=== PATIENT | female | born 1990 | race Caucasian/White ===

== ENCOUNTER 2018-11-11 02:22 | Observation (INO) | payer OTHER ==
[~2018-11-11] VITALS: Ht 157.5 cm; Wt 66.0 kg
[2018-11-11 03:35] VITALS: BP 128/77
[2018-11-11] MEDS ORDERED: ACETAMINOPHEN TAB 650MG DOSE (2X325MG) PO PRN (04:30)
--- NOTE | 2018-11-11 04:43 | HPEPDOC ---
[facility] Medical History & Physical Date of Admission Nov 11, 2018 Attending Physician: IDA ZAPIEN MD History and Physical CHIEF COMPLAINT: Arthralgia HISTORY OF PRESENT ILLNESS: Patient is a 27-year-old female with past medical history of anxiety and depression is transferred here with complaints of intrac table diffuse arthralgia. Patient reportedly has been having ongoing symptoms for 3-6 months that first started with ankle pain that was relieved with ibuprofen then subsequently spread to her knees, elbows, hands and all of her joints. Symptoms started to worsen for the past several days and she was seen in urgent care with all normal labs and given ibuprofen which she reported help her symptoms. However, when medication stopped working she went to the ER several times and was tested for Lyme disease, lupus, rheumatoid arthritis, malaria with extensive rheumatological workup (including uric acid, ESR, CRP, RF) that was repeatedly negative. She reported some chills but otherwise denies any fevers or any other symptoms. She does state that she has been under more stress lately with having an and total of 3 young children. No history of STDs but recently found out has been talking to other women. Also concern for fibromyalgia as patient reported that mother has this disease. PAST MEDICAL HISTORY: 1. Polyarthralgia. 2. Anxiety. 3. Depression. SOCIAL HISTORY: Denies alcohol, tobacco or illicit drug use. FAMILY HISTORY: Mother with diabetes, hypertension and fibromyalgia Father with skin cancer ALLERGIES: Please see below. REVIEW OF SYSTEMS: 10 point review of system negative except as stated above HOME MEDICATIONS: Please see below. PHYSICAL EXAMINATION: General: mild to moderate distress Eyes: Normal sclera, EOMI, NIKOLAS HENT: Atraumatic, neck supple, moist mucous membranes Cardiovascular: normal rhythm. No murmurs appreciated. Pulmonary: Clear to auscultation b/l, no wheezing GI: Soft, nontender, nondistended Skin: Warm and dry MSK: diffuse joint tenderness. Neuro: CN grossly intact. No focal deficits. Strengths equal b/l. Psych: oriented x 3 LABORATORY DATA: See below. MICROBIOLOGY: Please see below. ASSESSMENT AND PLAN: 1. Polyarthralgia - Migratory arthralgia concern for Viral vs. RA vs. other autoimmune disease vs. Psychological. - Has had multiple rheumatological workup as well as Lyme testing, malaria. - Will order hepatitis panel, parvovirus, STD testing. - Has been on steroids outpatient with minimal relief. - Will try Naproxen. Consider Rheumatological vs. neurology consultation if labs negative and symptoms persistent. 2. Anxiety and Depression - resume home medications. - May be contributing to symptoms Patient is high risk due to intractable pain and may require IV analgesics Estimated length of stay less than 2 days with expected disposition to home. Vital Signs Vital Signs Date Time Temp Pulse Resp B/P (MAP) Pulse Ox O2 Delivery O2 Flow Rate FiO2 11/11/18 03:35 98.0 77 16 128/77 (94) 97 IDA ZAPIEN MD Nov 11, 2018 04:43
[2018-11-11] MEDS ORDERED: METH4PACK PO (04:51)
[2018-11-11] MEDS ORDERED: BUSP5TA PO (04:53)
[2018-11-11] MEDS ORDERED: IBUPOTC PO (04:54)
[2018-11-11] MEDS ORDERED: PREN27TA3 PO (04:55)
[2018-11-11 06:06] LABS: HEMATOCRIT 37.9 % (36.0-47.0); MEAN CORPUSCULAR HEMOGLOBIN 30.7 pg (27.0-33.0); MEAN CORPUSCULAR HGB CONC 34.3 g/dl (32.0-36.5); MEAN CORPUSCULAR VOLUME 89.4 fl (80.0-96.0); PLATELET COUNT, AUTOMATED 246 10^3/uL (150-450); RED BLOOD COUNT 4.24 10^6/uL (4.00-5.40); WHITE BLOOD COUNT 7.7 10^3/uL (4.0-10.0)
[2018-11-11 06:35] LABS: ALBUMIN 3.6 GM/DL (3.2-5.2); ALT/SGPT 17 U/L (12-78); BILIRUBIN,DIRECT 0.1 MG/DL (0.0-0.2); BILIRUBIN,TOTAL 0.4 MG/DL (0.2-1.0); BLOOD UREA NITROGEN 9 MG/DL (7-18); CALCIUM LEVEL 8.3 MG/DL (8.5-10.1); CARBON DIOXIDE LEVEL 22 MEQ/L (21-32); CHLORIDE LEVEL 109 MEQ/L (98-107); CREATININE FOR GFR 0.74 MG/DL (0.55-1.30); GLOMERULAR FILTRATION RATE > 60.0 (>60); GLUCOSE, FASTING 129 MG/DL (70-100); POTASSIUM SERUM 4.1 MEQ/L (3.5-5.1); SODIUM LEVEL 140 MEQ/L (136-145); TOTAL PROTEIN 6.6 GM/DL (6.4-8.2)
[2018-11-11] MEDS ORDERED: busPIRone 5 MG TAB PO SCH (09:00)
[2018-11-11 09:22] LABS: ERYTHROCYTE SEDIMENTATION RATE 4 mm/hr (0-20)
[2018-11-11 09:50] LABS: C REACTIVE PROTEIN QUANTITATIV < 0.30 MG/DL (0.00-0.30)
[2018-11-11] MEDS: PRENATAL VITAMINS CHEWABLE TABLET PO SCH (09:51)
[2018-11-11 10:04] LABS: VITAMIN B12 LEVEL 1056 PG/ML (247-911)
[2018-11-11 10:37] LABS: HEPATITIS B SURFACE ANTIGEN NEGATIVE (NEGATIVE)
[2018-11-11 10:43] LABS: HIV 1&2 SCREEN CENTAUR NEGATIVE (NEGATIVE)
[2018-11-11 11:06] LABS: HEPATITIS A ANTIBODY IGM NEGATIVE (NEGATIVE)
[2018-11-11] MEDS: NAPROXEN 250 MG TAB PO PRN ×2 (12:25→20:17)
[2018-11-11 14:00] VITALS: BP 107/60
--- NOTE | 2018-11-11 17:03 | IPNPDOC ---
Date Seen The patient was seen on 11/11/18. Progress Note SUBJECTIVE: Ms. Alexis Desouza is a 27 yo female with PMH of anxiety and depression who presents with muscle weakness and arthralgias. She was seen this morning while resting in bed. She states that her main complaint this morning is muscle weakness, her current pain level is 2/10 intensity. She says this all began a few months ago with ankle stiffness, ankle weakness, and dull pain only in her ankle that she described as "growing pains." About 6 days ago she said that the weakness became generalized and she has associated sharp pain in her joints. She states that the pain comes after she has much difficulty trying to move her muscles. She feels most weak in the mornings. Within the past week she also reports intermittent muscle twitching and a "crawling sensation" in her muscles. The weakness is greatest in RLE>LLE>UE. She reports that within the past few months she has had some intermittent chills and subjective fevers but has never checked for a fever, pruritic dry scaling rash on her anterior neck that has resolved, dry mouth, and hair thinning, memory fog. She denies any unintentional weight loss, conjunctivitis, dry eye, and history of URI or gastrointestinal illness. She does feel that she is feeling better today. No overnight events reported by nursing. OBJECTIVE PHYSICAL EXAMINATION: VITAL SIGNS: Please see below. GENERAL: Alert, cooperative, tearful, A&OX3 HEENT: EOMI, PERRLA, supple, no rashes CARDIOVASCULAR: Regular rate, normal S1 and S2. No murmurs, rubs, or gallops RESPIRATORY: Lungs CTA bilaterally. No rales, rhonchi, or wheezes ABDOMINAL: soft, non tender to palpation, +BS EXTREMITIES: no rashes, no peripheral edema NEUROLOGICAL: UE and LE muscle strength testing was 4/5 throughout. Patient was using maximal effort to move extremities. PSYCHOLOGICAL: tearful and anxious LABORATORY DATA, IMAGING STUDIES, MICROBIOLOGY: Please see below. DVT prophylaxis ordered?: TEDs and sequentials ASSESSMENT AND PLAN: Ms. Alxeis Desouza is a 27 yo female with PMH of anxiety and depression who presents with muscle weakness and arthralgias. The following pro blems will be managed during her hospitalization: PROBLEMS: Muscle weakness and polyarthralgia -Possible secondary to Myasthenia gravis vs infectious vs fibromyalgia vs chronic fatigue syndrome vs psychological -Patient complains of multiple months of ankle weakness and new onset generalized weakness and joint pain within the last 6 days. She denies fevers, unintentional weight loss, rashes, URI, GI distress -ESR and CRP are normal. Nonreactive syphilis, negative hepatitis panel and HIV. Serologies are pending for fredo. She states that she has had a negative rheumatoid work up recently including RF and uric acid, as well as a negative lyme. Infectious and rheumatologic causes are unlikely due to negative lab work. Procalcitonin level ordered. -Unsure if myasthenia gravis. ACh receptor antibodies ordered -c/w Naproxen for pain control. Anxiety and depression -Patient reports increased stressors and anxiety in her life. May be contr ibuting to problem #1 and #2 -c/w home buspar DVT prophylaxis -TEDs and sequentials DISPOSITION: stable possible discharge in 24-48 hours for outpatient follow up/work up if clinical improving. VS, I&O, 24H, Fishbone Vital Signs/I&O Vital Signs Date Time Temp Pulse Resp B/P (MAP) Pulse Ox O2 Delivery O2 Flow Rate FiO2 11/11/18 03:35 98.0 77 16 128/77 (94) 97 I&O- Last 24 Hours up to 6 AM 11/11/18 06:00 Output Total 400 ml Balance -400 ml Laboratory Data 24H LABS Laboratory Tests 2 11/11/18 05:31: 11/11/18 05:41: Nucleated Red Blood Cells % (auto) 0.0, Erythrocyte Sedimentation Rate 4, Anion Gap 9, Glomerular Filtration Rate > 60.0, Blood Urea Nitrogen 9, Creatinine 0.74, Sodium Level 140, Potassium Level 4.1, Chloride Level 109H, Carbon Dioxide Level 22, Calcium Level 8.3L, Aspartate Amino Transf (AST/SGOT) 12, Alanine Aminotransferase (ALT/SGPT) 17, Alkaline Phosphatase 83, Total Bilirubin 0.4, Direct Bilirubin 0.1, Total Protein 6.6, Albumin 3.6, C-Reactive Protein, Quantitative < 0.30, Albumin/Globulin Ratio 1.20, Vitamin B12 Level 1056H CBC/BMP Laboratory Tests 11/11/18 05:41 Red Blood Count 4.24, Mean Corpuscular Volume 89.4, Mean Corpuscular Hemoglobin 30.7, Mean Corpuscular Hemoglobin Concent 34.3, Red Cell Distribution Width 11.6, Calcium Level 8.3 L, Aspartate Amino Transf (AST/SGOT) 12, Alanine Aminotransferase (ALT/SGPT) 17, Alkaline Phosphatase 83, Total Bilirubin 0.4, Direct Bilirubin 0.1, Total Protein 6.6, Albumin 3.6 GME ATTESTATION GME ATTESTATION My faculty preceptor for this patient encounter was physically present during the encounter and was fully available. All aspects of the patient interview, examination, medical decision making process, and medical care plan development were reviewed and approved by the faculty preceptor. The faculty preceptor is aware and concurs with the plan as stated in the body of this note and will attest to such by his/her cosignature. CHIDI SIFUENTES S-III Nov 11, 2018 11:51
[2018-11-11 20:00] VITALS: BP 124/78
[2018-11-12 06:00] VITALS: BP 108/57
[2018-11-12] MEDS: PRENATAL VITAMINS CHEWABLE TABLET PO SCH (08:59)
[2018-11-12 09:22] LABS: IONIZED CALCIUM 4.6 MG/DL (4.5-5.3)
[2018-11-12 09:28] LABS: BASO # 0.1 10^3/uL (0.0-0.2); BASO % 0.6 % (0.0-1.0); EOS # 0.1 10^3/uL (0.0-0.50); EOS % 0.7 % (0.0-3.0); HEMATOCRIT 41.5 % (36.0-47.0); HEMOGLOBIN 13.9 g/dl (12.0-15.5); LYMPH # 3.2 10^3/uL (1.5-6.5); LYMPH % 38.3 % (24.0-44.0); MEAN CORPUSCULAR HEMOGLOBIN 30.5 pg (27.0-33.0); MEAN CORPUSCULAR HGB CONC 33.5 g/dl (32.0-36.5); MEAN CORPUSCULAR VOLUME 91.2 fl (80.0-96.0); MONO # 0.4 10^3/uL (0.0-0.8); MONO % 4.2 % (0.0-5.0); NEUTROPHILS # 4.7 10^3/uL (1.8-7.7); PLATELET COUNT, AUTOMATED 260 10^3/uL (150-450); RED BLOOD COUNT 4.55 10^6/uL (4.00-5.40); WHITE BLOOD COUNT 8.4 10^3/uL (4.0-10.0)
[2018-11-12 09:54] LABS: ERYTHROCYTE SEDIMENTATION RATE 5 mm/hr (0-20)
[2018-11-12 09:58] LABS: ALBUMIN 3.9 GM/DL (3.2-5.2); ALT/SGPT 17 U/L (12-78); BILIRUBIN,TOTAL 0.4 MG/DL (0.2-1.0); BLOOD UREA NITROGEN 20 MG/DL (7-18); C REACTIVE PROTEIN QUANTITATIV < 0.30 MG/DL (0.00-0.30); CALCIUM LEVEL 8.4 MG/DL (8.5-10.1); CARBON DIOXIDE LEVEL 27 MEQ/L (21-32); CHLORIDE LEVEL 109 MEQ/L (98-107); COMPLEMENT C3 106 MG/DL (90-180); COMPLEMENT C4 18 MG/DL (10-40); CPK CREATINE PHOSPHOKINASE 44 U/L (26-192); CREATININE FOR GFR 0.67 MG/DL (0.55-1.30); GLOMERULAR FILTRATION RATE > 60.0 (>60); GLUCOSE, FASTING 90 MG/DL (70-100); MAGNESIUM LEVEL 2.1 MG/DL (1.8-2.4); POTASSIUM SERUM 3.7 MEQ/L (3.5-5.1); SODIUM LEVEL 140 MEQ/L (136-145); TOTAL PROTEIN 6.8 GM/DL (6.4-8.2)
--- NOTE | 2018-11-12 10:48 | REP ---
Right ankle: Two views. History: Right ankle pain. Findings: Ankle mortise is intact. There is no evidence of arthropathy. No bony erosive changes seen. Soft tissues are unremarkable. Impression: Negative two-view right ankle radiographs. Electronically Signed by Jesús Loving MD 11/12/2018 10:39 A
--- NOTE | 2018-11-12 10:57 | REP ---
Right eight in the colon at two views. History: Right knee pain. Findings: AP and lateral views of the right knee demonstrate normal bones, joints and soft tissues. No fracture or subluxation is seen. There is no radiographic evidence of arthropathy. Impression: Negative right knee radiographs, AP and lateral views. Electronically Signed by Jesús Loving MD 11/12/2018 10:48 A
--- NOTE | 2018-11-12 10:58 | REP ---
Chest x-ray: Two views. History: Cough. Subjective history of fever . Comparison study: No comparison study . Findings: The lungs are well inflated and free of infiltrate. The pleural angles are sharp. The heart size is normal. Pulmonary vasculature is not increased. No significant bony abnormality is seen. Impression: Negative chest x-ray. Electronically Signed by Jesús Loving MD 11/12/2018 10:49 A
--- NOTE | 2018-11-12 11:03 | REP ---
Right hand series: Four views. History: Arthropathy of the small joints. Rule out rheumatoid arthritis. Findings: Four views of the right hand show overall normal mineralization. There is no evidence of diffuse or periarticular osteoporosis. Joint spaces are preserved. No erosive changes are seen. Periarticular soft tissues are unremarkable. Impression: Negative radiographs of the right hand. Electronically Signed by Jesús Loving MD 11/12/2018 10:54 A
--- NOTE | 2018-11-12 21:39 | DS.PDOC ---
Discharge Summary General Date of Admission Nov 11, 2018 at 03:39 Date of Discharge November 12, 2018 Discharge Summary DISCHARGE DIAGNOSES: Nonspecific Polyarthralgia r/o Fibromyalgia Anxiety Depression DISCHARGE MEDICATIONS: Pls see below DISCHARGE INSTRUCTIONS: PCP TO REFER TO FLIGHT RADIO OPERATOR IN 1-2 WKS FU W PCP WITHIN 5DAYS OF DISCHARGE. HISTORY OF PRESENTING ILLNESS: Patient is a 27-year-old female with past medical history of anxiety and depression is transferred here with complaints of intractable diffuse arthralgia. Patient reportedly has been having ongoing symptoms for 3-6 months that first started with ankle pain that was relieved with ibuprofen then subsequ ently spread to her knees, elbows, hands and all of her joints. Symptoms started to worsen for the past several days and she was seen in urgent care with all normal labs and given ibuprofen which she reported help her symptoms. However, when medication stopped working she went to the ER several times and was tested for Lyme disease, lupus, rheumatoid arthritis, malaria with extensive rheumatological workup (including uric acid, ESR, CRP, RF) that was repeatedly negative. She reported some chills but otherwise denies any fevers or any other symptoms. She does state that she has been under more stress lately with having an infant and total of 3 young children. No history of STDs but recently found out has been talking to other women. Also concern for fibromyalgia as patient reported that mother has this disease. HOSPITAL COURSE: Polyarthralgia - Pt c/o right ankle, knee, and hand pain with subsequent involvement of the bilateral shoulders, left knee and ankle and small joints of the hand for the past week, WITHOUT swelling or redness. She denies any mouth, genital, or anal ulcers. no history of psoriasis, IBD and denied any brbpr,abdominal pain. denies any rash or history of GC chlamydia. admits to h/o trichomonas infection. - DARA, ds DNA, Scl, complement levels, ck, hepatitis profile, parvovirus, CASH REGISTER OPERATOR, Anti-citrulline ab pending - negative CRP, ESR, procalcitonin making infection unlikely - Xray right ankle, knee, hand wnl along with no signs of dactylitis, joint swelling -due to c/o cough and subjective fevers, ordered cxr and respiratory panel which were negative -c/o face rash today with some flushing. Lupus w/u pending but esr,crp, and complement levels were wnl. -highly encouraged referral to incident response analyst and pain mgt for possible fibromyalgia. Anxiety and Depression - resume home medications. - May be contributing to symptoms disposition: negative workup. dc home with outpt referral to rheum. PHYSICAL EXAMINATION: VITALS: PLS SEE BELOW General: AAOx 3,no pallor,no icterus, no respiratory distress Eyes: Normal sclera, EOMI, NIKOLAS HENT: Atraumatic, neck supple, moist mucous membranes, Cardiovascular: normal rhythm. No murmurs appreciated. Pulmonary: Clear to auscultation b/l, no wheezing GI: Soft, nontender, nondistended Skin: Warm and dry MSK: diffuse joint tenderness. but no dactylitis, joint swelling. no bogginess of mcp, pip, dip joints, knee, ankle , elbow, shoulder, or wrist joints. normal ROM b/l upper extremities/LE flexion , extension, pronation,supination. 5/5/ strength b/l in UE,LE. Neuro: CN grossly intact. No focal deficits. Strengths equal b/l. Psych: oriented x 3 LABORATORY DATA, IMAGING STUDIES: See below. MICROBIOLOGY: Please see below. TIME SPENT ON DISCHARGE: 30 MIN Vital Signs/I&Os Vital Signs Date Time Temp Pulse Resp B/P (MAP) Pulse Ox O2 Delivery O2 Flow Rate FiO2 11/12/18 06:00 98.4 74 16 108/57 (74) 98 I&O- Last 24 Hours up to 6 AM 11/12/18 06:00 Intake Total 720 ml Output Total 1250 ml Balance -530 ml Microbiology Microbiology 11/12/18 Respiratory Virus Panel (PCR) (MAGALY), Received Pending Discharge Medications Scheduled Buspirone HCl (Buspirone HCl) 5 Mg Tab, 5 MG PO BID, (Reported) Methylprednisolone (Methylprednisolone Dose P) 21 Ea Dspk, 4 MG PO ASDIRECTED, (Reported) LAST DOSE WAS THE AFTER LUNCH DOSE ON DAY 1 Multivitamins/ ( 27-1 mg) 1 Tab Tab, 1 TAB PO DAILY, (Reported) STOPPED TAKING WHILE ON STEROID Scheduled PRN Ibuprofen (Ibuprofen) 200 Mg Tab, 800 MG PO Q6H PRN for PAIN, (Reported) Allergies Coded Allergies: No Known Allergies (Unverified Allergy, Unknown, 11/11/18) KAY BRUNO MD Nov 12, 2018 09:22
[2018-11-13 14:19] LABS: ANTI DOUBLE STRAND-DNA AB <1 IU/mL (0-9); RNP ANTIBODY < 0.2 AI (0.0-0.9); SMITHS ANTIBODY < 0.2 AI (0.0-0.9)
[2018-11-14 00:08] LABS: ANTINUCLEAR ANTIBODIES DIRECT Negative (Negative)
[2018-11-17 00:06] LABS: PARVOVIRUS B19 QUANT PCR Negative copies/mL (Negative)
[2018-11-17 15:30] LABS: ANTI SCLERODERMA ANTIBODIES <0.2 AI (0.0-0.9); Chitobioside Carbohydrat (ACCA 0 units (0-90); Laminaribioside Carbohyd (ALCA 4 units (0-60); Mannobioside Carbohydrat (AMCA 20 units (0-100); Saccharomyces cerevisiae IgG A 7 units (0-50)
== END 2018-11-12 12:05 | disposition home or self-care (01) ==
LOC: M MS4PR 03:39
PROVIDERS: ADMIT Student in an Organized Health Care Education/Training Program; ATTEND Student in an Organized Health Care Education/Training Program
DX: M06.4 Inflammatory polyarthropathy (principal); M79.7 Fibromyalgia; F41.9 Anxiety disorder, unspecified; F32.9 Major depressive disorder, single episode, unspecified; Z79.899 Other long term (current) drug therapy

== ENCOUNTER 2019-01-21 17:42 | Emergency (ER) | payer OTHER ==
[~2019-01-21] VITALS: Ht 157.5 cm; Wt 66.4 kg
[~2019-01-21 17:42] MED LIST: BUSP5TA PO; IBUPOTC PO; METH4PACK PO; PREN27TA3 PO
[2019-01-21] MEDS ORDERED: CYMB1CAP4 PO (17:52)
[2019-01-21] MEDS ORDERED: VITA-122 PO (17:52)
[2019-01-21] MEDS ORDERED: NS 1,000 ML IV ONE (19:00)
[2019-01-21] MEDS ORDERED: ASPIRIN 81 MG CHEW TABLET PO ONE (19:00)
[2019-01-21 19:40] LABS: BASO % 0.6 % (0.0-1.0); EOS # 0.2 10^3/uL (0.0-0.50); EOS % 2.7 % (0.0-3.0); HEMATOCRIT 39.9 % (36.0-47.0); HEMOGLOBIN 13.7 g/dl (12.0-15.5); LYMPH % 29.2 % (24.0-44.0); MEAN CORPUSCULAR HEMOGLOBIN 31.1 pg (27.0-33.0); MEAN CORPUSCULAR HGB CONC 34.3 g/dl (32.0-36.5); MEAN CORPUSCULAR VOLUME 90.5 fl (80.0-96.0); MONO # 0.3 10^3/uL (0.0-0.8); MONO % 4.9 % (0.0-5.0); NEUTROPHILS # 4.3 10^3/uL (1.8-7.7); NEUTROPHILS % 62.5 % (36.0-66.0); PLATELET COUNT, AUTOMATED 235 10^3/uL (150-450); RED BLOOD COUNT 4.41 10^6/uL (4.00-5.40); WHITE BLOOD COUNT 6.8 10^3/uL (4.0-10.0)
[2019-01-21 19:51] LABS: INR 0.94; PROTHROMBIN TIME 12.7 SECONDS (12.1-14.4)
[2019-01-21 20:01] LABS: HCG, SERUM QUALITATIVE NEGATIVE (NEGATIVE)
[2019-01-21 20:09] LABS: AMPHETAMINES LEVEL URINE NEGATIVE (NEGATIVE); BARBITURATES URINE NEGATIVE (NEGATIVE); BENZODIAZEPINES URINE NEGATIVE (NEGATIVE); CANNABINOIDS URINE NEGATIVE (NEGATIVE); COCAINE METABOLITE URINE NEGATIVE (NEGATIVE); METHADONE URINE NEGATIVE (NEGATIVE); OPIATES URINE NEGATIVE (NEGATIVE); PHENCYCLIDINE URINE NEGATIVE (NEGATIVE)
[2019-01-21 20:11] LABS: ALBUMIN 3.5 GM/DL (3.2-5.2); ALT/SGPT 22 U/L (12-78); BILIRUBIN,DIRECT < 0.1 MG/DL (0.0-0.2); BILIRUBIN,TOTAL 0.2 MG/DL (0.2-1.0); BLOOD UREA NITROGEN 15 MG/DL (7-18); CALCIUM LEVEL 8.2 MG/DL (8.5-10.1); CARBON DIOXIDE LEVEL 27 MEQ/L (21-32); CHLORIDE LEVEL 108 MEQ/L (98-107); CK-MB VALUE MASS < 1.0 NG/ML (<3.6); CPK CREATINE PHOSPHOKINASE 94 U/L (26-192); GLOMERULAR FILTRATION RATE > 60.0 (>60); GLUCOSE, FASTING 97 MG/DL (70-100); MB/CK RELATIVE INDEX 1.06 (< OR =4); POTASSIUM SERUM 4.2 MEQ/L (3.5-5.1); SODIUM LEVEL 141 MEQ/L (136-145); TOTAL PROTEIN 7.1 GM/DL (6.4-8.2); TROPONIN I < 0.02 NG/ML (< 0.10)
[2019-01-21 20:45] VITALS: BP 138/72
[2019-01-21 22:14] LABS: T UPTAKE 34 % (30-39); THYROID STIMULATING HORMONE 0.839 uIU/ML (0.358-3.740); THYROXINE (T4) 8.7 UG/DL (4.5-12.0)
--- NOTE | 2019-01-22 08:21 | REP ---
CHEST: Single view. There is no evidence of acute infiltrate. No pleural effusion is seen. The heart is normal in size. The mediastinal silhouette is unremarkable. The visualized osseous structures are intact. IMPRESSION: No acute pulmonary disease. Electronically Signed by Gabe Martinez MD 01/22/2019 07:20 P
--- NOTE | 2019-01-22 13:19 | ECGEPIP ---
[facility] - ED Test Date: 2019-01-21 Pat Name: LIANA KAUR Department: Room: - Gender: Female Field Control Inspector: ct : 1990 Requested By: ALFONZO MCNULTY Order Number: [id number] Reading MD: Gera Neff Measurements Intervals [place] Rate: 90 P: 54 VA: 143 QRS: 38 QRSD: 81 T: 56 QT: 344 QTc: 421 Interpretive Statements SINUS RHYTHM NONSPECIFIC T-WAVE ABNORMALITY NO PRIORS FOR COMPARISON Electronically Signed on 01-22-2019 13:19:01 EDT by Gera Neff
== END 2019-01-21 20:59 | disposition home or self-care (01) ==
LOC: M ED 17:42 → EDBD 17:42 → M ED 20:59
DX: R00.2 Palpitations (principal); Z79.899 Other long term (current) drug therapy; F17.210 Nicotine dependence, cigarettes, uncomplicated

== ENCOUNTER 2019-02-06 21:19 | Emergency (ER) | payer OTHER ==
[~2019-02-06] VITALS: Ht 177.8 cm; Wt 65.9 kg
[2019-02-06 21:19] VITALS: BP 128/82
[~2019-02-06 21:19] MED LIST changes: +CYMB1CAP4 PO; +VITA-122 PO
[2019-02-06] MEDS ORDERED: AUGM875T28 PO (21:29)
[2019-02-06] MEDS ORDERED: NS 1,000 ML IV ONE (23:15)
[2019-02-06 23:18] LABS: BASO # 0.1 10^3/uL (0.0-0.2); BASO % 0.6 % (0.0-1.0); EOS # 0.2 10^3/uL (0.0-0.50); EOS % 2.5 % (0.0-3.0); HEMATOCRIT 38.3 % (36.0-47.0); HEMOGLOBIN 13.2 g/dl (12.0-15.5); LYMPH # 2.9 10^3/uL (1.5-6.5); LYMPH % 36.4 % (24.0-44.0); MEAN CORPUSCULAR HEMOGLOBIN 30.8 pg (27.0-33.0); MEAN CORPUSCULAR HGB CONC 34.5 g/dl (32.0-36.5); MEAN CORPUSCULAR VOLUME 89.3 fl (80.0-96.0); MONO # 0.4 10^3/uL (0.0-0.8); MONO % 5.2 % (0.0-5.0); NEUTROPHILS # 4.5 10^3/uL (1.8-7.7); NEUTROPHILS % 55.2 % (36.0-66.0); PLATELET COUNT, AUTOMATED 235 10^3/uL (150-450); RED BLOOD COUNT 4.29 10^6/uL (4.00-5.40); WHITE BLOOD COUNT 8.1 10^3/uL (4.0-10.0)
[2019-02-06 23:38] LABS: BLOOD UREA NITROGEN 14 MG/DL (7-18); CALCIUM LEVEL 8.2 MG/DL (8.5-10.1); CARBON DIOXIDE LEVEL 27 MEQ/L (21-32); CHLORIDE LEVEL 107 MEQ/L (98-107); CPK CREATINE PHOSPHOKINASE 71 U/L (26-192); CREATININE FOR GFR 0.68 MG/DL (0.55-1.30); GLOMERULAR FILTRATION RATE > 60.0 (>60); GLUCOSE, FASTING 86 MG/DL (70-100); POTASSIUM SERUM 3.6 MEQ/L (3.5-5.1); SODIUM LEVEL 142 MEQ/L (136-145)
--- NOTE | 2019-02-06 23:42 | REPVR ---
EXAM: CT Head Without Contrast EXAM DATE/TIME: 02/06/2019 11:13 PM CLINICAL HISTORY: 28 years old, female; Pain; Headache not specified; Additional info: Muscle weakness/aches, DESIR TECHNIQUE: Imaging protocol: Axial computed tomography images of the head without contrast. Radiation optimization: All CT scans at this facility use at least one of these dose optimization techniques: automated exposure control; mA and/or kV adjustment per patient size (includes targeted exams where dose is matched to clinical indication); or iterative reconstruction. COMPARISON: No relevant prior studies available. FINDINGS: Brain: No CT evidence of acute intracranial hemorrhage or acute territorial infarction. No significant mass effect or midline shift. Basal cisterns patent. Ventricles: Normal in size and configuration. Bones/joints: No acute osseous abnormality. Sinuses: Grossly unremarkable. Mastoid air cells: Grossly unremarkable. Soft tissues: Grossly unremarkable. IMPRESSION: No CT evidence of acute intracranial pathology. Electronically signed by: Js Amrstrong On 02/06/2019 23:42:17 PM
[2019-02-06 23:44] LABS: APPEARANCE, URINE CLEAR (CLEAR); BACTERIA, URINE AUTO NEGATIVE (NEGATIVE); BILIRUBIN, URINE AUTO NEGATIVE (NEGATIVE); BLOOD, URINE BLOOD NEGATIVE (NEGATIVE); COLOR, URINE YELLOW (YELLOW); GLUCOSE, URINE (UA) AUTO NEGATIVE (NEGATIVE); KETONE, URINE AUTO NEGATIVE (NEGATIVE); LEUKOCYTE ESTERASE, URINE AUTO TRACE (NEGATIVE); MUCUS, URINE SMALL (NEGATIVE); NITRITE, URINE AUTO NEGATIVE (NEGATIVE); PROTEIN, URINE AUTO NEGATIVE (NEGATIVE); RBC, URINE AUTO 2 /HPF (0-3); SPECIFIC GRAVITY URINE AUTO 1.014 (1.002-1.035); SQUAMOUS EPITHELIAL CELL UR AU 2 /HPF (0-6); WBC, URINE AUTO 2 /HPF (0-3)
--- NOTE | 2019-02-07 07:08 | ECGEPIP ---
[facility] - ED Test Date: 2019-02-06 Pat Name: LIANA KAUR Department: Room: - Gender: Female Committee Member: RACHEL : 1990 Requested By: KOBE Reese PA-C Order Number: [id number] Reading MD: Carla Mcknight Measurements Intervals [place] Rate: 78 P: 45 UT: 136 QRS: 49 QRSD: 86 T: 40 QT: 366 QTc: 419 Interpretive Statements SINUS RHYTHM NONSPECIFIC T-WAVE ABNORMALITY COMPARED 01/21/19 Electronically Signed on 02-07-2019 7:07:42 EDT by Carla Mcknight
[2019-02-10 00:09] LABS: Lyme Disease IgG/IgM Antibodie <0.91 ISR (0.00-0.90); Lyme Disease IgM Ab Quantitati <0.80 index (0.00-0.79)
== END 2019-02-07 00:58 | disposition home or self-care (01) ==
LOC: M ED 21:19
DX: M79.10 Myalgia, unspecified site (principal); Z87.891 Personal history of nicotine dependence; Z79.899 Other long term (current) drug therapy; Z79.2 Long term (current) use of antibiotics

== ENCOUNTER 2019-02-09 11:59 | Emergency (ER) | payer OTHER ==
[~2019-02-09] VITALS: Ht 157.5 cm; Wt 65.6 kg
[~2019-02-09 11:59] MED LIST changes: +AUGM875T28 PO
[2019-02-09 14:09] VITALS: BP 116/68
== END 2019-02-09 14:22 | disposition home or self-care (01) ==
LOC: M ED 11:59
DX: M79.10 Myalgia, unspecified site (principal); Z79.899 Other long term (current) drug therapy

== ENCOUNTER → 2019-02-28 | Outpatient (REF) | payer OTHER | LOC: M SFHCLERA 18:02 | PROVIDERS: ATTEND Nurse Practitioner Family | DX: R68.89 Other general symptoms and signs (principal) ==

== ENCOUNTER → 2019-03-18 | Outpatient (REF) | payer OTHER ==
[~2019-03-18] MED LIST changes: +CIPR-249 PO; +FLAG500T PO; +METO1TAB87 PO; +ONDA4TAB5 PO
[2019-03-18 17:08] LABS: ALBUMIN 3.9 GM/DL (3.2-5.2); ALT/SGPT 20 U/L (12-78); BILIRUBIN,TOTAL 0.4 MG/DL (0.2-1.0); BLOOD UREA NITROGEN 9 MG/DL (7-18); CARBON DIOXIDE LEVEL 26 MEQ/L (21-32); CHLORIDE LEVEL 107 MEQ/L (98-107); CREATININE FOR GFR 0.72 MG/DL (0.55-1.30); GLOMERULAR FILTRATION RATE > 60.0 (>60); GLUCOSE, FASTING 81 MG/DL (70-100); POTASSIUM SERUM 3.9 MEQ/L (3.5-5.1); SODIUM LEVEL 140 MEQ/L (136-145); TOTAL PROTEIN 7.5 GM/DL (6.4-8.2)
[2019-03-18 17:10] LABS: HEMATOCRIT 41.2 % (36.0-47.0); HEMOGLOBIN 14.2 g/dl (12.0-15.5); MEAN CORPUSCULAR HEMOGLOBIN 30.5 pg (27.0-33.0); MEAN CORPUSCULAR HGB CONC 34.5 g/dl (32.0-36.5); MEAN CORPUSCULAR VOLUME 88.4 fl (80.0-96.0); PLATELET COUNT, AUTOMATED 305 10^3/uL (150-450); RED BLOOD COUNT 4.66 10^6/uL (4.00-5.40); WHITE BLOOD COUNT 5.5 10^3/uL (4.0-10.0)
[2019-03-18 17:37] LABS: VITAMIN B12 LEVEL > 2000 PG/ML (247-911)
== END ==
LOC: M SFHCLERA 10:24
PROVIDERS: ATTEND Nurse Practitioner Family
DX: R42 Dizziness and giddiness (principal)
CPT/HCPCS: 80053; 81002; 81025; 82607; 82652; 82948; 84443; 85027; G0463

== ENCOUNTER 2019-03-26 11:46 | Emergency (ER) | payer OTHER ==
[~2019-03-26] VITALS: Ht 157.5 cm; Wt 65.9 kg
[~2019-03-26 11:46] MED LIST changes: -CIPR-249 PO; -FLAG500T PO; -METO1TAB87 PO; -ONDA4TAB5 PO
[2019-03-26] MEDS ORDERED: METO1TAB87 PO (11:55)
[2019-03-26] MEDS ORDERED: ONDA-83 PO (11:55)
[2019-03-26 12:23] LABS: BASO # 0.1 10^3/uL (0.0-0.2); BASO % 0.9 % (0.0-1.0); EOS # 0.2 10^3/uL (0.0-0.50); EOS % 3.5 % (0.0-3.0); HEMATOCRIT 40.4 % (36.0-47.0); HEMOGLOBIN 13.9 g/dl (12.0-15.5); LYMPH # 1.7 10^3/uL (1.5-6.5); LYMPH % 25.8 % (24.0-44.0); MEAN CORPUSCULAR HEMOGLOBIN 30.8 pg (27.0-33.0); MEAN CORPUSCULAR HGB CONC 34.4 g/dl (32.0-36.5); MEAN CORPUSCULAR VOLUME 89.4 fl (80.0-96.0); MONO # 0.4 10^3/uL (0.0-0.8); MONO % 5.6 % (0.0-5.0); NEUTROPHILS # 4.2 10^3/uL (1.8-7.7); PLATELET COUNT, AUTOMATED 256 10^3/uL (150-450); RED BLOOD COUNT 4.52 10^6/uL (4.00-5.40); WHITE BLOOD COUNT 6.6 10^3/uL (4.0-10.0)
[2019-03-26 12:52] LABS: HCG, SERUM QUALITATIVE NEGATIVE (NEGATIVE)
[2019-03-26 12:53] LABS: ALBUMIN 3.8 GM/DL (3.2-5.2); ALT/SGPT 20 U/L (12-78); BILIRUBIN,DIRECT 0.2 MG/DL (0.0-0.2); BILIRUBIN,TOTAL 0.4 MG/DL (0.2-1.0); BLOOD UREA NITROGEN 12 MG/DL (7-18); CALCIUM LEVEL 9.3 MG/DL (8.5-10.1); CARBON DIOXIDE LEVEL 33 MEQ/L (21-32); CHLORIDE LEVEL 104 MEQ/L (98-107); CREATININE FOR GFR 0.67 MG/DL (0.55-1.30); GLOMERULAR FILTRATION RATE > 60.0 (>60); GLUCOSE, FASTING 87 MG/DL (70-100); LIPASE 97 U/L (73-393); POTASSIUM SERUM 4.2 MEQ/L (3.5-5.1); SODIUM LEVEL 140 MEQ/L (136-145); TOTAL PROTEIN 7.3 GM/DL (6.4-8.2)
[2019-03-26] MEDS ORDERED: NS 1,000 ML IV ONE (15:45)
[2019-03-26] MEDS ORDERED: ISOVUE-370 76% 100ML VIAL (Q9967) As Ordered ONE (17:18)
[2019-03-26 17:55] LABS: APPEARANCE, URINE HAZY (CLEAR); BACTERIA, URINE AUTO NEGATIVE (NEGATIVE); BILIRUBIN, URINE AUTO NEGATIVE (NEGATIVE); BLOOD, URINE BLOOD NEGATIVE (NEGATIVE); COLOR, URINE YELLOW (YELLOW); GLUCOSE, URINE (UA) AUTO NEGATIVE (NEGATIVE); KETONE, URINE AUTO NEGATIVE (NEGATIVE); LEUKOCYTE ESTERASE, URINE AUTO NEGATIVE (NEGATIVE); MUCUS, URINE SMALL (NEGATIVE); NITRITE, URINE AUTO NEGATIVE (NEGATIVE); PROTEIN, URINE AUTO NEGATIVE (NEGATIVE); RBC, URINE AUTO 0 /HPF (0-3); SPECIFIC GRAVITY URINE AUTO 1.015 (1.002-1.035); SQUAMOUS EPITHELIAL CELL UR AU 1 /HPF (0-6); UROBILINOGEN, URINE AUTO 0.2 mg/dL (0.0-2.0); WBC, URINE AUTO 1 /HPF (0-3)
--- NOTE | 2019-03-26 18:27 | REPVR ---
EXAM: CT Abdomen and Pelvis With Contrast EXAM DATE/TIME: 03/26/2019 5:21 PM CLINICAL HISTORY: 28 years old, female; Other: Diarrhea and hematochezia; Additional info: Chronic diarrhea, hematochezia today TECHNIQUE: Imaging protocol: Axial computed tomography images of the abdomen and pelvis with intravenous contrast. Coronal and sagittal reformatted images were created and reviewed. Radiation optimization: All CT scans at this facility use at least one of these dose optimization techniques: automated exposure control; mA and/or kV adjustment per patient size (includes targeted exams where dose is matched to clinical indication); or iterative reconstruction. Contrast material: ISOVUE 370;Contrast volume: 100 ml;Contrast route: IV; COMPARISON: No relevant prior studies available. FINDINGS: Liver: Normal. No mass. Gallbladder and bile ducts: Normal. No calcified stones. No ductal dilation. Pancreas: Normal. No ductal dilation. Spleen: Normal. No splenomegaly. Adrenals: Normal. No mass. 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 Stomach and bowel: There appears to be mild circumferential wall thickening of the entire descending colon. This may be artifactual, related to nondistention. No bowel obstruction. No bowel wall pneumatosis. Appendix: No evidence of appendicitis. Intraperitoneal space: Normal. No free air. No significant fluid collection. Vasculature: Normal. No abdominal aortic aneurysm. Lymph nodes: Normal. No enlarged lymph nodes. Bladder: Unremarkable as visualized. Reproductive: Uterus is retroflexed. Bones/joints: No acute fracture. No dislocation. Soft tissues: Mild diastases of the rectus abdominis muscle. IMPRESSION: Apparent mild circumferential wall thickening of the entire descending colon. This may reflect acute regional colitis or may be artifactual, related to incomplete colonic nondistention. Electronically signed by: Rosalinda Nails On 03/26/2019 18:27:11 PM
[2019-03-26 18:34] LABS: H PYLORI QUALITATIVE IgG NEGATIVE (NEGATIVE)
[2019-03-26] MEDS ORDERED: FLAG500T PO ×2 (18:53→19:39)
[2019-03-26] MEDS ORDERED: CIPR-249 PO ×2 (18:53→19:39)
[2019-03-26] MEDS ORDERED: metroNIDAZOLE (FLAGYL) 500 MG TAB PO ONE (19:00)
[2019-03-26] MEDS ORDERED: CIPROFLOXACIN 500 MG TAB PO ONE (19:00)
[2019-03-26 19:30] VITALS: BP 123/68
--- NOTE | 2019-03-28 21:08 | ED PDOC ---
Post-Departure Follow-Up nettie etienne faxed formal report of ct abd/p for fu Rin Craig MD Mar 28, 2019 21:08
[2019-06-29] MEDS ORDERED: RA T500C2 PO (13:37)
[2019-06-29] MEDS ORDERED: VITA1CAP25 PO (13:37)
[2019-06-29] MEDS ORDERED: MAGN400C PO (13:37)
[2019-06-29] MEDS ORDERED: GABA-1171 PO (13:37)
[2019-06-29] MEDS ORDERED: PRENTAB55 PO (13:37)
== END 2019-03-26 19:35 | disposition home or self-care (01) ==
LOC: M ED 11:46
DX: K92.1 Melena (principal); R19.7 Diarrhea, unspecified; Z79.899 Other long term (current) drug therapy
CPT/HCPCS: 36415; 74177; 80048; 80076; 81001; 83690; 84703; 85025; 86677; 99284; Q9967

== ENCOUNTER 2019-07-07 11:50 | Day surgery (SDC) | payer OTHER ==
[~2019-07-07] VITALS: Ht 157.5 cm; Wt 67.5 kg
[~2019-07-07 11:50] MED LIST changes: +CIPR-249 PO; +FLAG500T PO; +GABA-1171 PO; +MAGN400C PO; +METO1TAB87 PO; +NS 1,000 ML IV ONE; +ONDA4TAB5 PO; +PRENTAB55 PO; +RA T500C2 PO; +VITA1CAP25 PO
[2019-07-07] MEDS ORDERED: LIDOCAINE 2% INJ 100 MG/5 ML SDV (FOR ANES.) As Ordered ONE (11:59)
[2019-07-07] MEDS ORDERED: PROPOFOL 200 MG/20 ML VIAL As Ordered ONE ×2 (11:59→13:41)
--- NOTE | 2019-07-07 13:58 | ROOR ---
Patient Name: Maddie Desouza Procedure Date: 07/07/2019 1:34 PM Date of : 1990 Age: 28 Room: [facility] Gender: Female Note Status: Finalized Procedure: Total Colonoscopy to Cecum Indications: Rectal bleeding, Abnormal CT of the GI tract Providers: Mikey Ramey MD Referring MD: Josh Saleem Do Requesting Provider: Medicines: Monitored Anesthesia Care Complications: No immediate complications. Procedure: Pre-Anesthesia Assessment: - The heart rate, respiratory rate, oxygen saturations, blood pressure, adequacy of pulmonary ventilation, and response to care were monitored throughout the procedure. The Colonoscope was introduced through the anus and advanced to the cecum, identified by appendiceal orifice and ileocecal valve. The colonoscopy was performed without difficulty. The patient tolerated the procedure well. The quality of the bowel preparation was excellent. Findings: The perianal and digital rectal examinations were normal. Non-bleeding internal hemorrhoids were found during retroflexion. The hemorrhoids were small and Grade I (internal hemorrhoids that do not prolapse). No other significant abnormalities were identified in a careful examination of the remainder of the colon. The exam was otherwise without abnormality on direct and retroflexion views. Impression: - Non-bleeding internal hemorrhoids. - The examination was otherwise normal on direct and retroflexion views. - No specimens collected. - The exam was otherwise normal to the cecum. Recommendation: - Patient has a contact number available for emergencies. The signs and symptoms of potential delayed complications were discussed with the patient. Return to normal activities tomorrow. Written discharge instructions were provided to the patient. - High fiber diet. - Discharge patient to home. - Continue present medications. - Repeat colonoscopy at age 51 for screening purposes. - Return to referring physician. - The findings and recommendations were discussed with the patient's family. Mikey Ramey MD Mikey Ramey MD 07/07/2019 1:57:47 PM Electronically signed by Mikey Ramey MD Number of Addenda: 0 Note Initiated On: 07/07/2019 1:34 PM Estimated Blood Loss: Estimated blood loss: none.
[2019-07-07 14:23] VITALS: BP 91/54
== END 2019-07-07 14:44 | disposition home or self-care (01) ==
LOC: M OPP 11:50
PROVIDERS: ATTEND Internal Medicine Gastroenterology
DX: K64.0 First degree hemorrhoids (principal); K62.5 Hemorrhage of anus and rectum; R93.3 Abnormal findings on diagnostic imaging of other parts of digestive tract; Z79.899 Other long term (current) drug therapy

== ENCOUNTER → 2019-09-15 | Outpatient (REF) | payer OTHER ==
[~2019-09-15] MED LIST changes: -NS 1,000 ML IV ONE; +ONDA-83 PO; -ONDA4TAB5 PO
== END ==
LOC: M SFHCLERA 18:03
PROVIDERS: ATTEND Nurse Practitioner Family
DX: J02.9 Acute pharyngitis, unspecified (principal)